=== PATIENT | female | born 1990 | race Caucasian/White ===

== ENCOUNTER 2020-05-08 19:20 | Emergency (ER) | payer OTHER ==
[2020-05-08] MEDS ORDERED: ACETAMINOPHEN 325 MG TABLET (FP) PO ONE (19:31)
[2020-05-08 19:41] VITALS: BP 127/74; PULSE 74; TEMP 98.5; BMI 20.9
[2020-05-08] MEDS ORDERED: ACETAMINOPHEN 325 MG TABLET (FP) ONE (19:41)
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
== END 2020-05-08 20:15 | disposition home or self-care (01) ==
LOC: FER 19:20
DX: R51 Headache (principal)
CPT/HCPCS: 99283-25

== ENCOUNTER 2022-01-19 19:00 | Emergency (ER) | payer OTHER ==
[2022-01-19 19:27] VITALS: BP 122/80; PULSE 75; TEMP 98.3; BMI 21.4
[2022-01-19] MEDS ORDERED: IBUPROFEN 600 MG TABLET (FP) PO ONE (20:03)
[2022-01-19] MEDS ORDERED: IBUPROFEN 400 MG TABLET (FP) PO ONE (20:15)
== END 2022-01-19 20:24 | disposition home or self-care (01) ==
LOC: FER 19:00
DX: S16.1XXA Strain of muscle, fascia and tendon at neck level, initial encounter (principal); S29.012A Strain of muscle and tendon of back wall of thorax, initial encounter; Y04.8XXA Assault by other bodily force, initial encounter
CPT/HCPCS: 99283-25

== ENCOUNTER 2022-11-27 12:00 | Emergency (ER) | payer OTHER ==
[2022-11-27 12:33] VITALS: BP 127/83; PULSE 71; RESP 15; TEMP 98.6; BMI 22.3
[2022-11-28 08:09] LABS: COCAINE QUALITATIVE URINE Negative ng/mL (Cutoff=300); MARIJUANA QL URINE CANNABINOID Negative ng/mL (Cutoff=50); METHADONE,QUALITATIVE URINE Negative ng/mL (Cutoff=300); OPIATES QL URINE Negative ng/mL (Cutoff=300); PHENCYCLIDINE,QUAL URINE Negative ng/mL (Cutoff=25); PROPOXYPHENE QL URINE Negative ng/mL (Cutoff=300); URINE AMPHETAMINES Negative ng/mL (Cutoff=1000)
== END 2022-11-27 13:21 | disposition home or self-care (01) ==
LOC: FER 12:00
DX: R42 Dizziness and giddiness (principal); R51.9 Headache, unspecified
CPT/HCPCS: 36415; 80307; 82375; 93005; 99284-25